=== PATIENT | female | born 1980 | race Caucasian/White ===

== ENCOUNTER 2018-03-02 10:52 | Outpatient (CLI) | payer OTHER | END 2018-03-02 10:59 | disposition home or self-care (01) | LOC: RAD 10:52 | DX: M72.2 Plantar fascial fibromatosis (principal); M79.672 Pain in left foot ==

== ENCOUNTER 2025-03-28 13:25 | Outpatient (CLI) | payer OTHER | END 2025-03-28 13:34 | disposition home or self-care (01) | LOC: RAD 13:25 | PROVIDERS: ATTEND Internal Medicine Rheumatology | DX: L40.59 Other psoriatic arthropathy (principal) ==